=== PATIENT | male | born 1985 | race Caucasian/White ===

== ENCOUNTER 2021-07-10 10:20 | Outpatient (CLI) | payer OTHER, SELFPAY ==
--- NOTE | ~2021-07-10 | US_ITS ---
EXAMINATION: US abdomen limited DATE: 07/10/2021 11:07 INDICATION: Autoimmune hepatitis, abdominal bloating TECHNIQUE: Multiple grayscale and Doppler ultrasound images of the abdomen were obtained. COMPARISON: None available FINDINGS: The head and body of the pancreas are normal. The pancreatic tail is obscured by bowel gas. The liver demonstrates increased echogenicity and heterogeneous echotexture. There is mild nodularit y of the liver surface. Normal hepatopetal flow in the main portal vein. No cholelithiasis is identif ied. The mildly thickened gallbladder wall measures up to 5 mm which may be due to chronic liver dise ase. The normal common bile duct measures 4 mm. There was no sonographic Morris sign. IMPRESSION: 1. Cirrhosis with small volume of ascites. Reviewed, dictated and finalized at location A. MIXER
== END 2021-07-10 10:21 | disposition home or self-care (01) ==
LOC: ANHIMG 10:27
PROVIDERS: Visit Provider Internal Medicine Gastroenterology
DX: K75.4 Autoimmune hepatitis (principal); K74.69 Other cirrhosis of liver
CPT/HCPCS: 76705

== ENCOUNTER 2021-10-08 11:25 | Outpatient (CLI) | payer OTHER, SELFPAY ==
--- NOTE | ~2021-10-08 | US_ITS ---
EXAMINATION: US abdomen limited DATE: 10/08/2021 12:21 INDICATION: Abdominal bloating, autoimmune hepatitis TECHNIQUE: Multiple grayscale and Doppler ultrasound images of the abdomen were obtained. COMPARISON: 07/10/2021 FINDINGS: Bowel gas obscures visualization of the pancreas. The visualized portions of the pancreas a re unremarkable. The liver demonstrates increased echogenicity, heterogenous echotexture, and decreas ed through transmission. There is nodularity of the liver surface. A small amount of perihepatic asci salvador is noted Normal hepatopetal flow in the main portal vein. The gallbladder is normal with no abnor mal wall thickening, pericholecystic fluid or stones. The normal common bile duct measures 5 mm. Ther e was no sonographic Morris sign. Incidental splenomegaly is noted with the spleen measuring 22.6 cm. There is a questionable tiny umbilical hernia. IMPRESSION: 1. Cirrhosis with small volume of ascites. 2. Splenomegaly, likely related to portal hypertension. 3. Possible tiny umbilical hernia. Reviewed, dictated and finalized at location B. [employer]
== END 2021-10-08 11:26 | disposition home or self-care (01) ==
PROVIDERS: Visit Provider Internal Medicine Gastroenterology
DX: R14.0 Abdominal distension (gaseous) (principal); K75.4 Autoimmune hepatitis; K74.60 Unspecified cirrhosis of liver; K42.9 Umbilical hernia without obstruction or gangrene; R16.1 Splenomegaly, not elsewhere classified
CPT/HCPCS: 76705

== ENCOUNTER 2021-12-07 08:29 | Outpatient (CLI) | payer OTHER, SELFPAY ==
--- NOTE | ~2021-12-07 | MR_ITS ---
EXAMINATION: MR MRCP wo/w con/w 3D wo ind DATE: 12/07/2021 10:10 INDICATION: Autoimmune hepatitis, elevated liver enzymes TECHNIQUE: Magnetic resonance imaging (MRI) of the abdomen was performed without and with intravenous contrast. Sequences included coronal T2-weighted SS-FSE ARC, coronal T2-weighted FS SS-FSE, coronal T2-weighted 2D FS FIESTA, Water:Coronal LAVA-Flex, sagittal T2-weighted SS-FSE ARC, axial SSFSE ARC, axial 3D DualEcho, axial DWI B=600, axial T1-weighted LAVA, FAT:Coronal LAVA-Flex, and coronal in and opposed phase LAVA-Flex. Thick-slab T2-weighted FRFSE-XL images were obtained for magnetic resonance cholangiopancreatography (MRCP). Maximum intensity projection 3-D reconstructions of the volumetric data were created by the technologist. Postcontrast sequences included a time course of axial T1-weig hted LAVA, FAT:Coronal LAVA-Flex, coronal in and opposed phase LAVA-Flex, and Water:Coronal LAVA-Flex . COMPARISON: None. CONTRAST: Multihance, 17 cc FINDINGS: ABDOMEN MRI: There is widespread nodularity of the liver surface. Heterogeneous areas of increased T2 signal intensity in the liver with corresponding enhancement are consistent with fibrosis. No liver mass is identified. The markedly enlarged spleen measures 25 cm in craniocaudal dimension. There is a large volume of ascites. The gallbladder is distended. There is mild periportal lymphadenopathy, lik mona reactive. There are no dilated loops of bowel. The kidneys are unremarkable. There is recanalizat ion of the umbilical vein with abdominal wall collaterals. ABDOMEN MRCP: MRCP sequences limited by motion artifact. There is moderate intrahepatic biliary dilat ation. The pancreatic duct is unremarkable. The common bile duct is not dilated. IMPRESSION: 1. Cirrhosis with portal hypertension as evidenced by marked splenomegaly, large volume of ascites, a nd recanalization of the umbilical vein and abdominal wall collaterals. 2. Intrahepatic biliary dilatation of unclear etiology, likely related to liver disease. Reviewed, dictated and finalized at location B. IMPRESSION: 1. Cirrhosis with portal hypertension as evidenced by marked splenomegaly, larg e volume of ascites, and recanalization of the umbilical vein and abdominal wal l collaterals. 2. Intrahepatic biliary dilatation of unclear etiology, likely related to liver disease.
[2021-12-07 09:10] LABS: Estimated Glomerular Filt Rate > 60
== END 2021-12-07 08:30 | disposition home or self-care (01) ==
PROVIDERS: Visit Provider Internal Medicine Gastroenterology
DX: R74.8 Abnormal levels of other serum enzymes (principal); K74.60 Unspecified cirrhosis of liver; K76.6 Portal hypertension; R16.1 Splenomegaly, not elsewhere classified
CPT/HCPCS: 74183; 76376; A9577

== ENCOUNTER 2022-03-05 12:30 | Outpatient (CLI) | payer OTHER, SELFPAY ==
--- NOTE | 2022-03-05 | ECHO_ITS ---
Patient Info Name: Terry Trevizo Age: 36 years : 1985 Gender: Male Ht: 69 in Wt: 195 lbs BSA: 2.10 m2 HR: 75 bpm BP: 126 / 78 mmHg Heart Rhythm: Sinus Rhythm Technical Quality: Good Exam Date: 03/05/2022 1:07 PM Exam Location: [facility] Patient Status: Outpatient Admit Date: 03/05/2022 Staff Ordering Physician: Eros, Dragan Graves MD Forest Ecologist: Malathi Diaz RDCS Attending Provider: Eros, Dragan Graves MD Referring Physician: Eros LY; Exam Type: CA echo doppler color flow Study Info Indications K75.4 - AUTOIMMUNE HEPATITIS Complete two-dimensional, color flow and Doppler transthoracic echocardiogram is performed. Summary 1. Complete two-dimensional, color flow and Doppler transthoracic echocardiogram is performed. 2. Left ventricular chamber dimension is normal. 3. Left ventricular systolic function is normal, estimated at 65-70%. 4. There is no increased left ventricular wall thickness. 5. The left ventricular diastolic function is normal. 6. Global longitudinal strain is normal at -22 %. 7. There is trace tricuspid valve regurgitation. 8. Mild pulmonary hypertension, estimated pulmonary arterial systolic pressure is 35 mmHg. Left Ventricle Left ventricular chamber dimension is normal. Left ventricular systolic function is normal, estimated at 65-70%. There is no increased left ventricular wall thickness. The left ventricular diastolic function is normal. Global longitudinal strain is normal at -22 %. Right Ventricle Right ventricular chamber dimension is normal. Right ventricular systolic function is normal. Left Atria Left atrial chamber dimension is mildly enlarged. Right Atria Right atrial chamber dimension is normal. Aortic Valve The aortic valve is trileaflet. There is no aortic valve stenosis. There is no aortic valve regurgitation. Pulmonic Valve The pulmonic valve is normal. There is trace pulmonic regurgitation. Mitral Valve The mitral valve has normal leaflets. There is trace mitral valve regurgitation. Tricuspid Valve The tricuspid valve leaflets are normal. There is trace tricuspid valve regurgitation. Mild pulmonary hypertension, estimated pulmonary arterial systolic pressure is 35 mmHg. Pericardium/Pleural The pericardium appears normal. There is trivial pericardial effusion. Ascites noted. Inferior Vena Cava Normal inferior vena cava with <50% collapse upon inspiration consistent with elevated right atrial pressure, 10 mmHg. Aorta The aortic root size at the sinus of Valsalva is normal. Left Ventricular Outflow Tract Name Value Normal LVOT 2D LVOT Diameter 2.0 cm LVOT Doppler LVOT Peak Gradient 5 mmHg LVOT Mean Gradient 3 mmHg LVOT VTI 21 cm LVOT VTI/AV VTI Ratio 0.8 LVOT Stroke Volume 69 ml LVOT CO 5.1 l/min LVOT CI 2.4 l/min/m2 Pulmonic Valve
== END 2022-03-05 12:31 | disposition home or self-care (01) ==
LOC: ANHCARD 12:31
PROVIDERS: Visit Provider Internal Medicine Gastroenterology
DX: K75.4 Autoimmune hepatitis (principal); I27.20 Pulmonary hypertension, unspecified
CPT/HCPCS: 93306